=== PATIENT | male | born 1940 | race Caucasian/White ===

== ENCOUNTER → 2016-04-30 | Outpatient (CLI) | payer MEDICARE, OTHER ==
[2016-04-30 11:44] LABS: ALBUMIN 3.7 GM/DL (3.2-5.2); ALBUMIN/GLOBULIN RATIO 1.16 (1.00-1.93); ALKALINE PHOSPHATASE 68 U/L (45-117); ALT/SGPT 31 U/L (12-78); AMYLASE 40 U/L (25-115); ANION GAP 9 MEQ/L (8-16); AST/SGOT 21 U/L (15-37); BILIRUBIN,TOTAL 0.5 MG/DL (0.2-1.0); BLOOD UREA NITROGEN 24 MG/DL (7-18); CALCIUM LEVEL 8.7 MG/DL (8.8-10.2); CARBON DIOXIDE LEVEL 27 MEQ/L (21-32); CHLORIDE LEVEL 107 MEQ/L (98-107); CREATININE FOR GFR 1.17 MG/DL (0.70-1.30); GLOMERULAR FILTRATION RATE > 60.0 (>42); GLUCOSE, FASTING 89 MG/DL (83-110); POTASSIUM SERUM 4.6 MEQ/L (3.5-5.1); SODIUM LEVEL 143 MEQ/L (136-145); TOTAL PROTEIN 6.9 GM/DL (6.4-8.2)
== END ==
LOC: M LAB 10:30
PROVIDERS: ATTEND Family Medicine
DX: R10.11 Right upper quadrant pain (principal)

== ENCOUNTER → 2016-05-05 | Outpatient (CLI) | payer MEDICARE, OTHER ==
--- NOTE | 2016-05-05 09:20 | REP ---
RIGHT UPPER QUADRANT ULTRASOUND: Real-time sonographic evaluation of the right upper quadrant performed. Patient is status post cholecystectomy. There is no intrahepatic or extrahepatic biliary dilatation, common bile duct measuring 5 mm in diameter. Survey images of the liver demonstrate diffuse increased echotexture suggesting diffuse fibrofatty infiltration. No gross mass is seen. Pancreas cannot be seen due to overlying bowel gas. Right kidney demonstrates no hydronephrosis or nephrolithiasis with normal size at 12.3 cm in length. There is no free fluid. IMPRESSION: Status post cholecystectomy. Diffuse fibrofatty infiltration of the liver. Otherwise unremarkable. Signed by Clint Evans MD 05/05/2016 08:05 P
== END ==
LOC: M RAD 06:57
PROVIDERS: ATTEND Family Medicine
DX: K76.0 Fatty (change of) liver, not elsewhere classified (principal); Z90.49 Acquired absence of other specified parts of digestive tract

== ENCOUNTER → 2024-04-27 | Outpatient (CLI) | payer OTHER | LOC: M EKG 13:30 | PROVIDERS: ATTEND Internal Medicine Cardiovascular Disease | DX: Z53.21 Procedure and treatment not carried out due to patient leaving prior to being seen by health care provider (principal) ==

== ENCOUNTER 2025-01-01 07:15 | Emergency (ER) | payer MEDICAID, OTHER ==
[~2025-01-01] VITALS: Ht 188 cm; Wt 89.6 kg
[2025-01-01 08:36] LABS: BASO # 0.0 10^3/uL (0.0-0.2); BASO % 0.6 % (0.0-1.0); EOS # 0.1 10^3/uL (0.0-0.5); EOS % 1.0 % (0.0-3.0); LYMPH # 2.0 10^3/uL (1.5-5.0); LYMPH % 29.6 % (24.0-44.0); MONO # 0.7 10^3/uL (0.0-0.8); MONO % 10.6 % (2.0-8.0); NEUTROPHILS # 4.0 10^3/uL (1.5-8.5); NEUTROPHILS % 57.9 % (36.0-66.0); PLATELET COUNT, AUTOMATED 245 10^3/uL (150-450)
[2025-01-01] MEDS ORDERED: QUET1TAB17 PO (09:06)
[2025-01-01] MEDS ORDERED: FINA5TAB2 PO (09:06)
[2025-01-01] MEDS ORDERED: VITACAP8 PO (09:07)
[2025-01-01] MEDS ORDERED: FLUT15.820 NARES (09:07)
[2025-01-01] MEDS ORDERED: OMEGCAP4 PO (09:07)
[2025-01-01] MEDS ORDERED: DONE10TA90 PO (09:07)
[2025-01-01] MEDS ORDERED: MULTTAB86 PO (09:07)
[2025-01-01] MEDS ORDERED: PROB250C PO (09:07)
[2025-01-01] MEDS ORDERED: HOME MED LIST COMPLETE! XX SCH (09:10)
[2025-01-01] MEDS: DERMABOND TOPICAL SKIN ADHESIVE TOP ONE (09:15)
[2025-01-01 09:23] LABS: INR 1.01
[2025-01-01 09:26] LABS: ALT/SGPT 33.0 U/L (7.0-40); AST/SGOT 33.0 U/L (<34); CALCIUM LEVEL 8.9 MG/DL (8.3-10.6); CARBON DIOXIDE LEVEL 28.0 MMOL/L (20-31); CHLORIDE LEVEL 104.0 MMOL/L (98-107); CREATININE FOR GFR 1.02 MG/DL (0.70-1.30); GLOMERULAR FILTRATION RATE 73.4 (>35); POTASSIUM SERUM 4.5 MMOL/L (3.5-5.1); SODIUM LEVEL 141.0 MMOL/L (136-145)
[2025-01-01] MEDS: LORazepam 1 MG TAB PO STA (11:13)
[2025-01-01] MEDS ORDERED: PROHANCE 279.3MG/ML 15ML VIAL As Ordered ONE (12:19)
[2025-01-01] MEDS ORDERED: PROHANCE 279.3MG/ML 5ML VIAL As Ordered ONE (12:19)
[2025-01-01 13:30] VITALS: BP 135/67; TEMP 97.4; O2SAT 93
== END 2025-01-01 13:45 | disposition home or self-care (01) ==
LOC: M ED 07:15
DX: S01.81XA Laceration without foreign body of other part of head, initial encounter (principal); D18.02 Hemangioma of intracranial structures; W22.09XA Striking against other stationary object, initial encounter; M47.812 Spondylosis without myelopathy or radiculopathy, cervical region; G20.C Parkinsonism, unspecified; F03.90 Unspecified dementia, unspecified severity, without behavioral disturbance, psychotic disturbance, mood disturbance, and anxiety; I44.0 Atrioventricular block, first degree; Z79.899 Other long term (current) drug therapy; Y92.009 Unspecified place in unspecified non-institutional (private) residence as the place of occurrence of the external cause; Y93.89 Activity, other specified; Y99.9 Unspecified external cause status
CPT/HCPCS: 12011; 70450; 70486; 70553; 72125; 80053; 85025; 85610; 86850; 86900; 86901; 93005; 99284; A9576

== ENCOUNTER 2025-01-06 18:35 | Observation (INO) | payer OTHER ==
[~2025-01-06] VITALS: Ht 188 cm; Wt 90.4 kg
[~2025-01-06 18:35] MED LIST: DONE10TA90 PO; FINA5TAB2 PO; FLUT15.820 NARES; MULTTAB86 PO; OMEGCAP4 PO; PROB250C PO; QUET1TAB17 PO; VITACAP8 PO
[2025-01-07 00:01] LABS: ALT/SGPT 33 U/L (7.0-40); AST/SGOT 26 U/L (<34); CALCIUM LEVEL 8.6 MG/DL (8.3-10.6); CARBON DIOXIDE LEVEL 27 MMOL/L (20-31); CHLORIDE LEVEL 107 MMOL/L (98-107); CK-MB VALUE MASS 2.2 NG/ML (<3.6); CPK CREATINE PHOSPHOKINASE 99 U/L (46-171); CREATININE FOR GFR 0.92 MG/DL (0.70-1.30); GLOMERULAR FILTRATION RATE 83.1 (>35); MAGNESIUM LEVEL 2.1 MG/DL (1.8-2.4); MB/CK RELATIVE INDEX 2.22 (< OR =4); POTASSIUM SERUM 4.3 MMOL/L (3.5-5.1); SODIUM LEVEL 141 MMOL/L (136-145)
[2025-01-07 00:02] LABS: FREE T4 0.84 NG/DL (0.89-1.76)
[2025-01-07 00:08] LABS: D-DIMER QUANT 0.78 ug/mL (<0.5); INR 0.97
[2025-01-07 00:11] LABS: BASO # 0.1 10^3/uL (0.0-0.2); BASO % 0.6 % (0.0-1.0); EOS # 0.1 10^3/uL (0.0-0.5); EOS % 1.4 % (0.0-3.0); LYMPH # 3.0 10^3/uL (1.5-5.0); LYMPH % 33.4 % (24.0-44.0); MONO # 1.0 10^3/uL (0.0-0.8); MONO % 11.2 % (2.0-8.0); NEUTROPHILS # 4.8 10^3/uL (1.5-8.5); NEUTROPHILS % 53.2 % (36.0-66.0); PLATELET COUNT, AUTOMATED 262 10^3/uL (150-450)
[2025-01-07 01:13] LABS: CK-MB VALUE MASS 2.4 NG/ML (<3.6)
[2025-01-07 01:26] LABS: CPK CREATINE PHOSPHOKINASE 97 U/L (46-171); MB/CK RELATIVE INDEX 2.47 (< OR =4)
[2025-01-07] MEDS ORDERED: ARIP1TAB4 PO (02:58)
[2025-01-07] MEDS ORDERED: QUET50TA4 PO (02:58)
[2025-01-07] MEDS ORDERED: ELDE350C PO (03:41)
[2025-01-07] MEDS ORDERED: AZEL1SPR3 (03:41)
[2025-01-07] MEDS ORDERED: HOME MED LIST COMPLETE! XX SCH (03:45)
[2025-01-07] MEDS ORDERED: MAALOX 30 ML SUSP *UDC PO PRN (04:15)
[2025-01-07] MEDS ORDERED: MOM 30 ML SUSPENSION UDC PO PRN (04:15)
[2025-01-07] MEDS ORDERED: ACETAMINOPHEN 325 MG TAB PO PRN (04:15)
[2025-01-07] MEDS: FINASTERIDE 5 MG TAB PO SCH (09:39)
[2025-01-07] MEDS: OMEGA-3 1000 MG CAPSULE PO SCH (09:39)
[2025-01-07] MEDS: AZELASTINE 137 MCG NASAL SPY 30 ML SCH (09:39)
[2025-01-07] MEDS: DOCUSATE SODIUM 100 MG CAPSULE PO SCH (09:39)
[2025-01-07] MEDS: QUEtiapine FUMARATE 50MG TAB PO SCH (21:38)
[2025-01-08] MEDS ORDERED: OLANZapine INTRAMUSCULAR 10MG VIAL IM PRN (01:10)
[2025-01-08] MEDS: DONEPEZIL 5 MG TAB PO SCH (17:14)
[2025-01-08] MEDS: ENOXAPARIN 40 MG/0.4 ML SYRINGE (J1650 PER 10MG) SC SCH (21:17)
[2025-01-09 13:51] VITALS: BP 142/74; TEMP 98.1; O2SAT 95
[2025-01-10 04:00] VITALS: BP 126/67; TEMP 97.4; O2SAT 96
[2025-01-11 05:33] VITALS: BP 147/81; TEMP 97.4; O2SAT 94
[2025-01-11 06:30] LABS: PLATELET COUNT, AUTOMATED 257 10^3/uL (150-450)
[2025-01-12 03:42] VITALS: BP 112/58; TEMP 97.1; O2SAT 93
[2025-01-13 05:50] VITALS: BP 121/59; TEMP 97.7; O2SAT 95
[2025-01-13] MEDS: OXYMETAZOLINE 0.05% NASAL SPRAY SCH (09:00)
[2025-01-14 05:59] VITALS: BP 134/77; TEMP 98.7; O2SAT 93
[2025-01-14 06:05] LABS: PLATELET COUNT, AUTOMATED 267 10^3/uL (150-450)
[2025-01-14 19:47] VITALS: BP 160/82; TEMP 98.1; O2SAT 93
[2025-01-15 04:35] VITALS: BP 119/75; TEMP 98.4; O2SAT 93
[2025-01-16 06:25] VITALS: BP 136/74; TEMP 97.2; O2SAT 95
[2025-01-17 04:42] VITALS: BP 129/74; TEMP 98.1; O2SAT 94
[2025-01-17 05:52] LABS: PLATELET COUNT, AUTOMATED 282 10^3/uL (150-450)
[2025-01-18 05:47] VITALS: BP 126/89; TEMP 98.3; O2SAT 93
[2025-01-19 04:16] VITALS: BP 102/51; TEMP 98.2; O2SAT 95
[2025-01-19 04:26] VITALS: BP 130/70
[2025-01-20 04:19] VITALS: BP 132/72; TEMP 98.6; O2SAT 95
[2025-01-20 07:50] LABS: PLATELET COUNT, AUTOMATED 278 10^3/uL (150-450)
[2025-01-21 03:43] VITALS: BP 123/67; TEMP 98.3; O2SAT 95
[2025-01-22 04:06] VITALS: BP 117/71; TEMP 97.9; O2SAT 94
[2025-01-23 03:51] VITALS: BP 113/67; TEMP 98; O2SAT 96
[2025-01-24 04:19] VITALS: BP 128/71; TEMP 98; O2SAT 97
[2025-01-25 06:05] VITALS: BP 151/91; TEMP 98; O2SAT 96
[2025-01-26 05:03] VITALS: BP 136/76; TEMP 97.8; O2SAT 94
[2025-01-27 05:47] VITALS: BP 127/69; TEMP 98.1; O2SAT 95
[2025-01-28 06:13] VITALS: BP 114/87; TEMP 97.9; O2SAT 94
[2025-01-29 03:41] VITALS: BP 130/70; TEMP 98.1; O2SAT 96
[2025-01-29 05:50] VITALS: BP 131/68; TEMP 98.1; O2SAT 96
[2025-01-30 03:44] VITALS: BP_SYST 145; BP_SYST 149; BP_DIAS 85; BP_DIAS 86; TEMP 98.4; O2SAT 95
== END 2025-01-31 12:11 | disposition home health service (06) ==
LOC: M ED 18:35 → EDBD 18:35 → M ED INP 18:36 → M MSPAV 01-09 13:55
PROVIDERS: ADMIT Student in an Organized Health Care Education/Training Program; ATTEND Internal Medicine
DX: G30.9 Alzheimer's disease, unspecified (principal); F02.811 Dementia in other diseases classified elsewhere, unspecified severity, with agitation; G20.C Parkinsonism, unspecified; M48.061 Spinal stenosis, lumbar region without neurogenic claudication; I10 Essential (primary) hypertension; Z96.653 Presence of artificial knee joint, bilateral; R26.89 Other abnormalities of gait and mobility; M19.90 Unspecified osteoarthritis, unspecified site; Z79.899 Other long term (current) drug therapy
CPT/HCPCS: 36415; 70450; 71046; 80048; 80076; 82550; 82553; 83690; 83735; 83880; 84439; 84443; 84484; 85025; 85027; 85379; 85610; 85730; 87486; 87581; 87633; 87798; 93005; 93041; 94760; 96372; 97161; 99285; J1650; S0138